=== PATIENT | female | born 1935 | race Caucasian/White ===

== ENCOUNTER 2018-11-02 09:44 | Emergency (ER) | payer OTHER ==
[2018-11-02] MEDS ORDERED: VASOTEC I.V. 2.5 MG IV ONE ×2 (10:23→10:31)
--- NOTE | 2018-11-02 10:23 | ERPHSYRPT ---
- History of Present Illness Time Seen by Provider: 11/02/18 10:10 Source: patient, family Exam Limitations: no limitations Patient Subjective Stated Complaint: STATES WAS AT THERAPY THIS AM AND B/P WAS ELEVATED. RECENT CVA TWO WEEKS AGO. Triage Nursing Assessment: TO ROOM PER W/C. SKIN W/D, COLOR NORMAL, RESP EASY. DENIES ANY PAIN. Physician History: 82 y/o white female with recent h/o cva and htn was at rehab today and vitals taken showed elevated bp so pt sent here. pt states she does not have headache, cp, or abd pain. she did not want to come to ED. pt has h/o afib on amiodarone, eliquis, metoprolol and prn hydralazine. in addition, pt has h/o chf, copd. pt did take her medications at 0815 this am Timing/Duration: today Activities at Onset: none Quality: other (asymptomatic) Severity of Pain-Max: none Severity of Pain-Current: none Modifying Factors: Improves With: nothing Nitro Today/Relief: no nitro taken today Aspirin Treatment Today: no aspirin today Associated Symptoms: denies symptoms Allergies/Adverse Reactions: No Known Drug Allergies Allergy (Verified 11/02/18 10:01) Home Medications: Levalbuterol [Xopenex 0.63MG/3ML Nebules] 1 neb IH Q6H PRN PRN 11/08/14 [History ] Metoprolol Tartrate 25 mg [Lopressor 25MG Tab] 25 mg PO DAILY 11/08/14 [ History] Omeprazole 20 MG [Prilosec 20 mg] 20 mg PO DAILY 11/08/14 [History] Amiodarone HCl 200 mg PO DAILY 11/02/18 [History] Apixaban [Eliquis] 2.5 mg PO BID 11/02/18 [History] Atorvastatin Calcium [Lipitor] 40 mg PO HS 11/02/18 [History] Diltiazem HCl [Cartia Xt] 120 mg PO DAILY 11/02/18 [History] Furosemide 20 mg [Lasix 20 mg] 20 mg PO DAILY 11/02/18 [History] Hydralazine HCl 10 mg PO BIDPRN PRN 11/02/18 [History] Hx Tetanus, Diphtheria Vaccination/Date Given: No Hx Influenza Vaccination/Date Given: Yes Hx Pneumococcal Vaccination/Date Given: Yes - Review of Systems Constitutional: No Symptoms Eyes: No Symptoms Ears, Nose, & Throat: No Symptoms Respiratory: No Symptoms Cardiac: No Symptoms Abdominal/Gastrointestinal: No Symptoms Genitourinary Symptoms: No Symptoms Musculoskeletal: No Symptoms Skin: No Symptoms Neurological: No Symptoms Psychological: No Symptoms Endocrine: No Symptoms Hematologic/Lymphatic: No Symptoms Immunological/Allergic: No Symptoms All Other Systems: Reviewed and Negative - Past Medical History Pertinent Past Medical History: Yes Neurological History: Stroke ENT History: No Pertinent History Cardiac History: Arrhythmia, Hypertension Respiratory History: COPD Endocrine Medical History: No Pertinent History Musculoskeletal History: No Pertinent History GI Medical History: No Pertinent History History: No Pertinent History Psycho-Social History: No Pertinent History Female Reproductive Disorders: No Pertinent History - Past Surgical History Past Surgical History: Yes Neuro Surgical History: No Pertinent History Respiratory: No Pertinent History Gastrointestinal: Cholecystectomy Genitourinary: No Pertinent History Musculoskeletal: No Pertinent History Female Surgical History: No Pertinent History - Social History Smoking Status: Never smoker Exposure to second hand smoke: Yes Drug Use: none Patient Lives Alone: No - Female History Hx Now: No - Nursing Vital Signs Nursing Vital Signs: Initial Vital Signs Temperature 97.5 F 11/02/18 09:54 Pulse Rate 64 11/02/18 09:54 Respiratory Rate 16 11/02/18 09:54 Blood Pressure 202/96 11/02/18 09:54 O2 Sat by Pulse Oximetry 96 11/02/18 09:54 Pain Scale Pain Intensity 0 - Physical Exam General Appearance: no apparent distress, alert Eye Exam: PERRL/EOMI, eyes nml inspection Ears, Nose, Throat Exam: normal ENT inspection, moist mucous membranes Neck Exam: normal inspection, non-tender, supple, full range of motion Respiratory Exam: normal breath sounds, lungs clear, airway intact, No chest tenderness, No respiratory distress Cardiovascular Exam: irregular Gastrointestinal/Abdomen Exam: soft, normal bowel sounds, No tenderness Pelvic Exam: not done Rectal Exam: not done Back Exam: normal inspection, normal range of motion, No CVA tenderness Extremity Exam: normal inspection, normal range of motion, pelvis stable Neurologic Exam: alert, oriented x 3, cooperative, collar sewer II-XII nml as tested, normal mood/affect, nml cerebellar function, nml station & gait, sensation nml, No motor deficits, No sensory deficit Skin Exam: normal color, warm, dry Lymphatic Exam: No adenopathy SpO2 Interpretation: normal SpO2: 96 O2 Delivery: Room Air - Course Nursing assessment & vital signs reviewed: Yes Ordered Tests: Active Orders 24 hr Category Date Time Status Power Tool Repairer STAT Care 11/02/18 10:24 Active IV Insertion STAT Care 11/02/18 10:23 Active Pulse Oximetry (ED) STAT Care 11/02/18 10:23 Active CBC W DIFF Stat Lab 11/02/18 10:35 Completed CMP Stat Lab 11/02/18 10:35 Completed PROTIME WITH INR Stat Lab 11/02/18 10:35 Completed UA W/RFX UR CULTURE Stat Lab 11/02/18 11:06 Completed Medication Summary Discontinued Medications Generic Name Dose Route Start Last Admin Trade Name Freq PRN Reason Stop Dose Admin Enalaprilat 1.25 mg 11/02/18 10:23 11/02/18 10:32 Vasotec I.V. 2.5 Mg IV 11/02/18 10:24 1.25 mg STAT ONE Administration Enalaprilat Confirm 11/02/18 10:31 Vasotec I.V. 2.5 Mg Administered 11/02/18 10:32 Dose 2.5 mg IV .STUzabase-MED ONE Lab/Rad Data: Laboratory Result Diagrams 11/02/18 10:35 11/02/18 10:35 Laboratory Results 11/02/18 11/02/18 11/02/18 Range/Units 11:06 10:35 10:35 WBC (4.0-10.5) K/mm3 RBC (4.1-5.4) M/mm3 Hgb (12.0-16.0) gm/dl Hct (35-47) % MCV (78-100) fl MCH (26-32) pg MCHC (32-36) g/dl RDW (11.5-14.0) % Plt Count (150-450) K/mm3 MPV (6-9.5) fl Gran % (36.0-66.0) % Eos # (Auto) (0-0.5) Absolute Lymphs (auto) (1.0-4.6) Absolute Monos (auto) (0.0-1.3) Lymphocytes % (24.0-44.0) % Monocytes % (0.0-12.0) % Eosinophils % (0.00-5.0) % Basophils % (0.0-0.4) % Absolute Granulocytes (1.4-6.9) Basophils # (0-0.4) PT 16.2 H (9.95-12.35) SECONDS INR 1.42 (0.8-3.0) Sodium 141 (137-145) mmol/L Potassium 4.0 (3.5-5.1) mmol/L Chloride 103 (98-107) mmol/L Carbon Dioxide 27 (22-30) mmol/L Anion Gap 15.3 H (5-15) MEQ/L BUN 23 H (7-17) mg/dL Creatinine 0.75 (0.52-1.04) mg/dL Estimated GFR > 60.0 ML/MIN Glucose 105 (74-106) mg/dL Calcium 9.7 (8.4-10.2) mg/dL Total Bilirubin 0.70 (0.2-1.3) mg/dL AST 38 H (14-36) U/L ALT 28 (0-35) U/L Alkaline Phosphatase 76 (38-126) U/L Serum Total Protein 7.3 (6.3-8.2) g/dL Albumin 4.0 (3.5-5.0) g/dL Urine Color STRAW (YELLOW) Urine Appearance CLEAR (CLEAR) Urine pH 7.0 (5-6) Ur Specific [place] 1.006 (1.005-1.025) Urine Protein NEGATIVE (Negative) Urine Ketones NEGATIVE (NEGATIVE) Urine Blood NEGATIVE (0-5) Myles/ul Urine Nitrite NEGATIVE (NEGATIVE) Urine Bilirubin NEGATIVE (NEGATIVE) Urine Urobilinogen NEGATIVE (0-1) mg/dL Ur Leukocyte Esterase TRACE (NEGATIVE) Urine WBC (Auto) NONE (0-5) /HPF Urine RBC (Auto) NONE (0-2) /HPF U Epithel Cells (Auto) NONE (FEW) /HPF Urine Bacteria (Auto) NONE (NEGATIVE) /HPF Urine Mucus (Auto) SLIGHT (NEGATIVE) /HPF Urine Culture Reflexed NO (NO) Urine Glucose NEGATIVE (NEGATIVE) mg/dL 11/02/18 Range/Units 10:35 WBC 4.6 (4.0-10.5) K/mm3 RBC 4.03 L (4.1-5.4) M/mm3 Hgb 12.4 (12.0-16.0) gm/dl Hct 38.9 (35-47) % MCV 96.5 (78-100) fl MCH 30.7 (26-32) pg MCHC 31.9 L (32-36) g/dl RDW 14.9 H (11.5-14.0) % Plt Count 242 (150-450) K/mm3 MPV 10.5 H (6-9.5) fl Gran % 55.8 (36.0-66.0) % Eos # (Auto) 0.21 (0-0.5) Absolute Lymphs (auto) 1.31 (1.0-4.6) Absolute Monos (auto) 0.51 (0.0-1.3) Lymphocytes % 28.3 (24.0-44.0) % Monocytes % 11.0 (0.0-12.0) % Eosinophils % 4.5 (0.00-5.0) % Basophils % 0.4 (0.0-0.4) % Absolute Granulocytes 2.58 (1.4-6.9) Basophils # 0.02 (0-0.4) PT (9.95-12.35) SECONDS INR (0.8-3.0) Sodium (137-145) mmol/L Potassium (3.5-5.1) mmol/L Chloride (98-107) mmol/L Carbon Dioxide (22-30) mmol/L Anion Gap (5-15) MEQ/L BUN (7-17) mg/dL Creatinine (0.52-1.04) mg/dL Estimated GFR ML/MIN Glucose (74-106) mg/dL Calcium (8.4-10.2) mg/dL Total Bilirubin (0.2-1.3) mg/dL AST (14-36) U/L ALT (0-35) U/L Alkaline Phosphatase (38-126) U/L Serum Total Protein (6.3-8.2) g/dL Albumin (3.5-5.0) g/dL Urine Color (YELLOW) Urine Appearance (CLEAR) Urine pH (5-6) Ur Specific [place] (1.005-1.025) Urine Protein (Negative) Urine Ketones (NEGATIVE) Urine Blood (0-5) Myles/ul Urine Nitrite (NEGATIVE) Urine Bilirubin (NEGATIVE) Urine Urobilinogen (0-1) mg/dL Ur Leukocyte Esterase (NEGATIVE) Urine WBC (Auto) (0-5) /HPF Urine RBC (Auto) (0-2) /HPF U Epithel Cells (Auto) (FEW) /HPF Urine Bacteria (Auto) (NEGATIVE) /HPF Urine Mucus (Auto) (NEGATIVE) /HPF Urine Culture Reflexed (NO) Urine Glucose (NEGATIVE) mg/dL - Progress Progress: improved, re-examined Air Movement: good Progress Note: 11/02/18 12:05 no complaints and wants to go home. Blood Culture(s) Obtained: No Antibiotics given: No Counseled pt/family regarding: lab results, diagnosis, need for follow-up - Departure Departure Disposition: Home Clinical Impression: Hypertensive urgency Condition: Stable Critical Care Time: Yes Critical Care Time(excluding separately billable procedures): Critical 30-74 mins Referrals: DOCTOR,NO FAMILY [Primary Care Provider] - Additional Instructions: continue your medications as prescribed. call your primary doctor and neurologist today to arrange a follow up appointment
[2018-11-02 10:46] LABS: BASOPHIL % 0.4 % (0.0-0.4); Basophil (Absolute #) 0.02 (0-0.4); Eosinophil % 4.5 % (0.00-5.0); Eosinophil (Absolute #) 0.21 (0-0.5); Granulocyte Absolute (ANC) 2.58 (1.4-6.9); Granulocytes % 55.8 % (36.0-66.0); Hematocrit 38.9 % (35-47); Hemoglobin 12.4 gm/dl (12.0-16.0); Lymphocyte (Absolute #) 1.31 (1.0-4.6); Lymphocytes % 28.3 % (24.0-44.0); Mean Cell Volume 96.5 fl (78-100); Mean Corpuscular Hgb Concent. 31.9 g/dl (32-36); Mean Platelet Volume 10.5 fl (6-9.5); Monocyte (Absolute #) 0.51 (0.0-1.3); Platelet Count 242 K/mm3 (150-450); Red Blood Count 4.03 M/mm3 (4.1-5.4); Red Cell Distribution Width 14.9 % (11.5-14.0); White Blood Count 4.6 K/mm3 (4.0-10.5)
[2018-11-02 10:50] LABS: Mean Corpuscular Hemoglobin 30.7 pg (26-32)
[2018-11-02 10:53] LABS: INR 1.42 (0.8-3.0); PROTIME 16.2 SECONDS (9.95-12.35)
[2018-11-02 11:20] LABS: ALKALINE PHOSPHATASE 76 U/L (38-126); ANION GAP 15.3 MEQ/L (5-15); BLOOD UREA NITROGEN 23 mg/dL (7-17); CHLORIDE 103 mmol/L (98-107); Calcium 9.7 mg/dL (8.4-10.2); Carbon Dioxide 27 mmol/L (22-30); Creatinine 1 0.75 mg/dL (0.52-1.04); Glucose 105 mg/dL (74-106); SGOT/AST 38 U/L (14-36); SGPT/ALT 28 U/L (0-35); SODIUM 141 mmol/L (137-145); Total Protein 7.3 g/dL (6.3-8.2)
[2018-11-02 11:49] LABS: Appearance CLEAR (CLEAR); Bilirubin NEGATIVE (NEGATIVE); Blood NEGATIVE Ery/ul (0-5); Glucose NEGATIVE (NEGATIVE); Ketones NEGATIVE (NEGATIVE); Leukocyte Esterase TRACE (NEGATIVE); Mucus SLIGHT /HPF (NEGATIVE); Nitrite NEGATIVE (NEGATIVE); Protein,Urine Dip NEGATIVE (Negative); Specific Gravity 1.006 (1.005-1.025); Urobilinogen NEGATIVE mg/dL (0-1)
[2018-11-02 12:57] VITALS: BP 145/93; PULSE 89; O2SAT 96
== END 2018-11-02 12:55 | disposition home or self-care (01) ==
LOC: ED 09:44
DX: I16.0 Hypertensive urgency (principal)
CPT/HCPCS: 36000; 36415; 80053; 81001; 85025; 85610; 93041; 94760; 96374; 99284; 99291